=== PATIENT | male | born 1995 | race Two or more races ===

== ENCOUNTER 2024-10-02 06:07 | Emergency (ER) | payer MEDICAID ==
[~2024-10-02] VITALS: Ht 177.8 cm; Wt 129.3 kg
[2024-10-02] MEDS ORDERED: CEPHALEXIN MONOHYDRATE 500 MG CAPSULE PO ONE (09:36)
[2024-10-02] MEDS: CEPHALEXIN MONOHYDRATE 500 MG CAPSULE PO ONE (09:38)
[2024-10-02 09:50] LABS: APPEARANCE,URINE CLEAR (CLEAR); BLOOD, URINE NEGATIVE Ery/uL (NEGATIVE); LEUKOCYTE ESTERASE ,URINE NEGATIVE (NEGATIVE); NITRITE, URINE NEGATIVE (NEGATIVE); UGLUCOSE NEGATIVE (NEGATIVE)
[2024-10-02 10:04] LABS: ADD URINE CULTURE NO; SQUAMOUS EPITHELIAL CELL,UR 0-2 /HPF (None Seen)
[2024-10-02] MEDS ORDERED: CEPH-570 PO (10:27)
[2024-10-02 10:34] VITALS: BP 130/80; TEMP 98.5; O2SAT 98
[2024-10-03 21:07] LABS: CHLAMYDIA TRACHOMATIS NAA Negative (Negative); NEISSERIA GONORRHOEAE NAA Negative (Negative)
== END 2024-10-02 10:35 | disposition home or self-care (01) ==
LOC: ER 06:18
DX: L73.9 Follicular disorder, unspecified (principal); L03.315 Cellulitis of perineum; Z60.2 Problems related to living alone
CPT/HCPCS: 76870-TC; 81001; 82962-TC; 87491; 87591